=== PATIENT | female | born 1990 | race Caucasian/White ===

== ENCOUNTER 2019-10-05 10:25 | Emergency (ER) | payer BC, OTHER ==
[~2019-10-05] VITALS: Ht 177.8 cm; Wt 136.1 kg
[2019-10-05] MEDS ORDERED: LO LOESTRIN FE1 EACH PO (10:41)
[2019-10-05 11:27] LABS: ABSOLUTE NEUTROPHILS 3.1 thou/uL (1.4-8.2); BASOPHILS 0.7 % (0.0-2.0); EOSINOPHILS 2.3 % (0.0-3.0); HEMATOCRIT 40.9 % (37.0-47.0); HEMOGLOBIN 13.6 gm/dL (12.0-15.0); LYMPHOCYTES 32.5 % (24.0-44.0); MCH 28.1 pg (26.0-34.0); MCHC 33.3 g/dL (28.0-37.0); MCV 84.4 fL (80.0-100.0); MONOCYTES 8.5 % (1.0-8.0); PLATELET COUNT 249 thou/uL (150-400); RBC 4.85 mil/uL (4.20-5.00); RDW 12.3 % (10.5-14.5); WBC 5.6 thou/uL (4.0-11.0)
[2019-10-05 11:29] LABS: URINE BILIRUBIN NEGATIVE (Negative); URINE BLOOD NEGATIVE (Negative); URINE CLARITY CLEAR; URINE COLOR YELLOW; URINE GLUCOSE-RANDOM* NEGATIVE (Negative); URINE KETONES NEGATIVE (Negative); URINE LEUKOCYTES-REFLEX NEGATIVE (Negative); URINE NITRITE-REFLEX NEGATIVE (Negative); URINE PROTEIN (DIPSTICK) NEGATIVE (Negative); URINE SPECIFIC GRAVITY 1.015 (1.005-1.035); URINE UROBILINOGEN 0.2 E.U./dl (0.2-1.0)
[2019-10-05 11:31] LABS: ANION GAP 11 mmol/L (7-16); BUN 11 mg/dL (7-18); CHLORIDE 103 mmol/L (98-107); CO2 26 mmol/L (21-32); CREATININE 0.8 mg/dL (0.6-1.0); GLUCOSE 105 mg/dL (74-106); POTASSIUM 3.7 mmol/L (3.5-5.1); SODIUM 140 mmol/L (136-145)
[2019-10-05 11:41] LABS: SGOT 11 U/L (15-37); SGPT 20 U/L (30-65); TOTAL BILIRUBIN 0.3 mg/dL (<0.1-1.0); TOTAL PROTEIN 7.7 g/dL (6.4-8.2); TROPONIN-I <0.06 ng/mL (<0.06)
[2019-10-05] MEDS ORDERED: ZOFRAN ODT4 MG DISSOLVE (12:18)
[2019-10-05 12:42] VITALS: BP 130/74
--- NOTE | 2019-10-06 17:18 | EKG ---
[place] [address] [facility] [place] [employer] [place] [address] ELECTROCARDIOGRAM REPORT Name: LISETH HEMPHILL Room #: DEP [facility]ENTERFunmilayo#: [id number] Admission: 10/05/19 Attend Phys: Discharge: 10/05/19 Date of : 89 Report #: [id number] THIS REPORT FOR: //name// [facility] ED Test Date: 2019-10-05 Test Time: 10:28:09 Pat Name: LISETH HEMPHILL Department: Room: Gender: F [employer]ing [employer]: ARIKINABDOUL : 1990 Requested By: Kvng Beal Order Number: [id number] MD: Gomez Jones Measurements Intervals [place] Rate: 89 P: 31 GA: 154 QRS: 16 QRSD: 111 T: 31 QT: 377 QTc: 459 Interpretive Statements Sinus rhythm Consider left atrial enlargement Nonspecific T abnormalities, anterior leads No previous ECG available for comparison Electronically Signed On 10-06-2019 17:17:55 [employer] by Gomez Jones [email or web address] <ELECTRONICALLY SIGNED> By: Gomez Jones MD 10/06/19 1717 1028 1028 MD AUNG Perez
== END 2019-10-05 13:08 | disposition home or self-care (01) ==
LOC: ER 10:25
PROVIDERS: Physician Assistant
DX: R42 Dizziness and giddiness (principal); R11.0 Nausea